=== PATIENT | female | born 1965 | race Caucasian/White ===

== ENCOUNTER → 2016-06-11 | Day surgery (SDC) | payer OTHER ==
[~2016-06-11] MED LIST: ACETYLCYSTEINE 20% 6,000 MG/30 ML ORAL SOLN VIAL ONE; CYCL1PAK PO; DULO20 PO; LACTATED RINGER'S 1,000 ML BAG IV ONE; LEVO.05 PO; MOBI7.5T PO; PHEN-329 PO; PRAM0.12 PO; PROPOFOL 200 MG/20 ML AMP IV ONE; PROT40TA PO
== END | disposition home or self-care (01) ==
LOC: ESDC 07:56
PROVIDERS: ATTEND Internal Medicine Gastroenterology
DX: K22.70 Barrett's esophagus without dysplasia (principal)
CPT/HCPCS: 00740; 43229; J3010; J7120

== ENCOUNTER → 2017-07-23 | Day surgery (SDC) | payer OTHER ==
[~2017-07-23] VITALS: Ht 170.2 cm; Wt 89.9 kg
[~2017-07-23] MED LIST changes: +ACETAMINOPHEN 1000 MG/100 ML 100 ML IV SCH; -ACETYLCYSTEINE 20% 6,000 MG/30 ML ORAL SOLN VIAL ONE; +BACITRACIN TOP OINT 15 GM TUBE ONE; +BUPIVACAINE/EPINEPHRINE 0.5% 50 ML VIAL ONE; +BUPIVACAINE/EPINEPHRINE 0.5% PF 30 ML VIAL ONE; +CHLORHEXIDINE GLUCONATE 2 % 1 PACK (2 CLOTHS) TOPICAL PRN; +DEXAMETHASONE SOD PHOS 4 MG/ML VIAL IV ONE; +DO NOT ADM ANY ANTICOAGULANT DRUGS PRN; +DULO1CAP2 PO; +FAMOTIDINE 20 MG/2 ML VIAL ONE; +GLYCOPYRROLATE 1 MG/5 ML SYRINGE IV PUSH ONE; +HYDR-3133 PO; +INSULIN HUMAN REGULAR 1,000 UNITS/10 ML VIAL SQ PRN; +KETOROLAC TROMETHAMINE 30 MG/ML (IVP) VIAL IV PUSH ONE; +KETOROLAC TROMETHAMINE 30 MG/ML (IVP) VIAL ONE; -LACTATED RINGER'S 1,000 ML BAG IV ONE; +LACTATED RINGER'S 1000 ML INJ 1,000 ML IV ONE; +LACTATED RINGER'S 1000 ML IV PRN; +LEVO50TA53 PO; +LIDOCAINE 1%/EPINEPHrine 1:100,000 SOLN 50 ML VIAL ONE; +LIDOCAINE HCL 1% PF 5 ML SYRINGE OTHER ONE; +LORA1TAB12 PO; +MELO7.5T27 PO; +METF500T PO; +METOPROLOL TARTRATE 25 MG TAB PO PRN; +MIDAZOLAM HCL 2 MG/2 ML VIAL ONE; +MORPHINE SULFATE 4 MG/ML INJ IV PUSH PRN; +NEOSTIGMINE 5 MG/5 ML SYRINGE IV PUSH ONE; +ONDANSETRON HCL 4 MG/2 ML VIAL IV ONE; +ONDANSETRON HCL 4 MG/2 ML VIAL IV PUSH PRN; +PANT40TA3 PO; +ROCURONIUM INJ 50 MG/5 ML SYRINGE IV PUSH ONE; +SODIUM CHLORID 0.9% 500 ML IV PRN; +SODIUM CHLORIDE 0.9% FLUSH 10 ML FLUSH IV FLUSH PRN; +SODIUM CHLORIDE 0.9% FLUSH 10 ML FLUSH IV FLUSH SCH; +oxyCODONE/ACETAMINOPHEN 5 MG/325 MG TAB PO PRN
[2017-07-23 12:35] VITALS: BP 114/80; PULSE 70; RESP 18; TEMP 97.8; O2SAT 98
--- NOTE | 2017-07-23 16:01 | PD.OP ---
cc: Geo Costello MD; Iam Cardenas MD PhD Operative Report Date of Surgery: Jul 23, 2017 Preoperative Diagnosis: Multiple lipomas right lower back Postoperative Diagnosis: Multiple lipomas right lower back Procedure: Excision of lipomas right lower back Anesthesia: General endotracheal Surgeon: Geo Costello Copier Operator(s): Tanisha Samson, MS 3 Operation and Findings: Operative findings and procedure: The patient had been palpated have new lipomas in the right lower back and these were identified without difficulty once the surgery commenced. The patient was first brought to the operating room , and after satisfactory general endotracheal anesthesia was obtained, the patient was placed prone on the operating table with pressure points controlled properly. The lower back was then prepped and draped in usual sterile fashion. 0.5% Marcaine with epinephrine was used to infiltrate the skin for local anesthesia. The previous oblique incision was opened sharply and then continued inferiorly and somewhat laterally in a hockey-stick type incision. The incision was then carried out through the subcutaneous tissues tissue the cautery being used for hemostasis. The previous seroma cavity was entered with minimal fluid noted but a well-formed fibrous capsule seen. The lipomas were located somewhat inferior to this area and were dissected free using the cautery. There were more lipomas deeper and more lateral and these were also dissected free. Further palpation failed reveal any other lipomas. All the material was sent for permanent pathology and encompasses at least 4.5 cm in diameter. The area was made hemostatic after which the subcutaneous tissues tissue was closed with interrupted 3-0 Vicryl suture and the skin closed with interrupted 4-0 PDS subcutaneous stitches. Steri-Strips were applied the patient was then awakened and taken from the operating room, in satisfactory condition, having tolerated the procedure without problem. Estimated blood loss was less than 10 mL's. The instrument, sponge, and needle counts were reported as being correct 2 at the end of procedure. Geo Costello MD Jul 23, 2017 16:01
== END | disposition home or self-care (01) ==
LOC: HSDC 08:24
PROVIDERS: ATTEND Surgery
DX: D17.1 Benign lipomatous neoplasm of skin and subcutaneous tissue of trunk (principal)
CPT/HCPCS: 00300; 21930; 29130; 88304; J0131; J1100; J1885; J2250; J2405; J2710; J3010; J7120